=== PATIENT | female | born 1990 | race Caucasian/White ===

== ENCOUNTER → 2016-08-05 | Outpatient (CLI) | payer OTHER ==
--- NOTE | 2016-08-05 14:24 | RAD ---
Abdominal wall ultrasound, 08/05/2016: History: Periumbilical mass The area of clinical concern in the abdominal wall at the periumbilical level was carefully scanned. The intra-abdominal contents were not evaluated at this time. No cystic or solid mass is identified. No hernia was seen. CT scanning of the region may be useful for further evaluation, if clinically indicated. Pelvic ultrasound, 08/05/2016: History: Pelvic pain Transabdominal and transvaginal scans were obtained. The transabdominal scans were of limited value due to lack of bladder distention. The uterus is within normal limits in size measuring 7.9 x 5.9 x 3.6 cm. The central uterine echo complex measures 7-8 mm in AP dimension. No uterine abnormality is seen. Both ovaries contain several small follicular cysts. The right ovary measures 4.1 x 2.1 x 1.9 cm while left ovary measures 3.9 x 3.8 x 3.3 cm. Blood flow is present in both ovaries. No adnexal mass is seen. No free fluid is evident in the pelvis. IMPRESSION: No significant pelvic abnormality is detected.
== END | disposition home or self-care (01) ==
LOC: US 06:42
PROVIDERS: ATTEND Physician Assistant Medical
DX: R19.05 Periumbilic swelling, mass or lump (principal); R10.2 Pelvic and perineal pain
CPT/HCPCS: 76705; 76830; 76856